=== PATIENT | female | born 1965 | race Caucasian/White ===

== ENCOUNTER 2019-04-24 13:55 | Outpatient (CLI) | payer BC ==
--- NOTE | 2019-05-21 15:10 | MMO ---
Bilateral MAMMO Bilat Screen [facility]. CLINICAL HISTORY: Patient is 54 years old and is seen for screening. The patient has no family history of breast cancer. The patient has no personal history of cancer. VIEWS: The views performed were: bilateral craniocaudal with tomosynthesis and bilateral mediolateral oblique with tomosynthesis. This study has been interpreted with the assistance of computer-aided detection. MAMMOGRAM FINDINGS: There are scattered fibroglandular densities. Finding 1: There are benign appearing calcifications seen in both breasts. Finding 2: Normal implants are present. There are no suspicious masses, suspicious calcifications, or new areas of architectural distortion. IMPRESSION: THERE IS NO MAMMOGRAPHIC EVIDENCE OF MALIGNANCY. A ROUTINE FOLLOW-UP MAMMOGRAM IN 1 YEAR IS RECOMMENDED. THE RESULTS OF THIS EXAM WERE SENT TO THE PATIENT. ACR BI-RADS Category 2 - Benign finding MAMMOGRAPHY NOTE: 1. A negative mammogram report should not delay a biopsy if a dominant of clinically suspicious mass is present. 2. Approximately 10% to 15% of breast cancers are not detected by mammography. 3. Adenosis and dense breasts may obscure an underlying neoplasm. Reported by: ZAHIRA DOMINGUEZ MD Electonically Signed: [id number]
== END 2019-04-24 13:56 | disposition home or self-care (01) ==
LOC: BICMAMMO 13:55
PROVIDERS: ATTEND Family Medicine
DX: Z12.31 Encounter for screening mammogram for malignant neoplasm of breast (principal)
CPT/HCPCS: 77063; 77067

== ENCOUNTER 2020-04-14 13:33 | Outpatient (CLI) | payer BC, OTHER ==
[2020-04-14] MEDS ORDERED: Iopamidol-370 76% 500 ML 1 ML ONE (14:22)
--- NOTE | 2020-04-15 09:02 | CT ---
CT ABDOMEN AND PELVIS WITH IV AND ORAL CONTRAST: HISTORY: Left lower quadrant pain. Hematochezia. Reflux. FINDINGS: The lung bases are clear. The liver, spleen, kidneys, adrenal glands, and pancreas have a normal CT appearance. Diverticula arise from the colon without adjacent inflammation. No evidence of bowel obstruction. A ppendix is normal. Ligation clip is noted near the periphery of the left fallopian tube. There is also a clip immediate ly anterior to the upper rectum, not in the general location of the right adnexa. Uterus is within normal limits for patient's age. Ovaries not visualized. There are degenerative changes throughout the lumbar spine. IMPRESSION: 1. Diverticulosis. No evidence of diverticulitis. 2. No acute abnormalities are demonstrated. 3. Ligation clips in the pelvis, as detailed above, are not at the expected locations of the respect wiley adnexa. Possibly having migrated over time. Ovaries not visualized. Possibly atrophied. POS: BST
== END 2020-04-14 13:34 | disposition home or self-care (01) ==
LOC: BICCT 13:33
PROVIDERS: ATTEND Internal Medicine
DX: K92.1 Melena (principal); R10.32 Left lower quadrant pain; K21.9 Gastro-esophageal reflux disease without esophagitis; K57.30 Diverticulosis of large intestine without perforation or abscess without bleeding; Z98.890 Other specified postprocedural states
CPT/HCPCS: 74177; Q9967

== ENCOUNTER 2022-05-30 15:49 | Outpatient (CLI) | payer BC, OTHER | END 2022-05-30 15:50 | disposition home or self-care (01) | LOC: BICCT 15:49 | PROVIDERS: ATTEND Family Medicine | DX: I10 Essential (primary) hypertension (principal) | CPT/HCPCS: 75571 ==

== ENCOUNTER 2022-10-22 11:02 | Outpatient (CLI) | payer OTHER, BC | END 2022-10-22 11:03 | disposition home or self-care (01) | LOC: ULT 11:02 | PROVIDERS: ATTEND Internal Medicine Cardiovascular Disease | DX: E04.1 Nontoxic single thyroid nodule (principal) | CPT/HCPCS: 76536 ==

== ENCOUNTER 2022-10-30 12:44 | Outpatient (CLI) | payer OTHER, BC | END 2022-10-30 12:45 | disposition home or self-care (01) | LOC: RAD 12:44 | PROVIDERS: ATTEND Family Medicine | DX: M25.532 Pain in left wrist (principal) ==